=== PATIENT | female | born 1975 | race Caucasian/White ===

== ENCOUNTER 2019-06-10 17:04 | Emergency (ER) | payer OTHER ==
[2019-06-10 20:05] LABS: ADD MAN DIFF? NO
[2019-06-10 20:08] LABS: WHITE BLOOD COUNT 10.7 10^3/ul (4.8-10.8)
[2019-06-10 20:08] LABS: BASOPHILS % 0.4 % (0.0-2.0); EOSINOPHILS # 0.2 10^3/ul (0.0-0.5); EOSINOPHILS % 2.1 % (0.0-7.0); HEMATOCRIT 36.6 % (37.0-47.0); HEMOGLOBIN 12.2 g/dl (12.0-16.0); LYMPHOCYTES # 3.7 10^3/ul (0.8-2.9); LYMPHOCYTES % 34.9 % (15.0-51.0); MEAN CORPUSCULAR HEMOGLOBIN 30.8 pg (29.0-33.0); MEAN CORPUSCULAR HGB CONC 33.3 g/dl (32.0-37.0); MEAN CORPUSCULAR VOLUME 92.4 fl (82.0-101.0); MEAN PLATELET VOLUME 9.6 fl (7.4-10.4); MONOCYTE # 0.6 10^3/ul (0.3-0.9); MONOCYTES % 5.4 % (0.0-11.0); NEUTROPHIL # 6.1 10^3/ul (1.6-7.5); NEUTROPHILS % 56.8 % (39.0-77.0); PLATELET COUNT 266 10^3/UL (140-415); RED BLOOD COUNT 3.96 10^6/ul (4.20-5.40); RED CELL DISTRIBUTION WIDTH 14.9 % (11.5-14.5)
[2019-06-10 20:17] LABS: ADD UMIC YES; UR ASCORBIC ACID 20 mg/dL (NEGATIVE); UR BACTERIA FEW /HPF (NONE SEEN); UR BILIRUBIN (Dip) NEGATIVE (NEGATIVE); UR BLOOD (Dip) 1+ mg/dL (NEGATIVE); UR CLARITY CLEAR (CLEAR); UR COLOR YELLOW (YELLOW); UR GLUCOSE (Dip) NEGATIVE (NEGATIVE); UR KETONES (Dip) NEGATIVE (NEGATIVE); UR LEUKOCYTE ESTERASE (Dip) TRACE Leu/ul (NEGATIVE); UR NITRITE (Dip) NEGATIVE (NEGATIVE); UR RBC 0 /HPF (0-5); UR SPECIFIC GRAVITY (Dip) 1.011 (1.003-1.030); UR SQUAMOUS EPITHELIAL CELL FEW /HPF (FEW); UR TOTAL PROTEIN (Dip) NEGATIVE (NEGATIVE); UR UROBILINOGEN (Dip) NEGATIVE (NEGATIVE); UR WBC 1 /HPF (0-5)
[2019-06-10 20:28] LABS: ALANINE AMINOTRANSFERASE 22 IU/L (13-69); ALBUMIN 4.5 g/dl (3.3-4.9); ALBUMIN/GLOBULIN RATIO 0.95; ALKALINE PHOSPHATASE 86 IU/L (42-121); ANION GAP 9 (5-13); ASPARTATE AMINO TRANSFERASE 24 IU/L (15-46); BILIRUBIN,INDIRECT 0.4 mg/dl (0-1.1); BILIRUBIN,TOTAL 0.4 mg/dl (0.2-1.3); BLOOD UREA NITROGEN 9 mg/dl (7-20); CALCIUM 9.8 mg/dl (8.4-10.2); CARBON DIOXIDE 28 mmol/L (21-31); CHLORIDE 105 mmol/L (97-110); CREATININE 0.58 mg/dl (0.44-1.00); Estimated GFR > 60 mL/min (>60); GLUCOSE 87 mg/dl (70-220); INR 0.96; LIPASE 81 U/L (23-300); POTASSIUM 3.7 mmol/L (3.5-5.1); PROTIME 12.9 Sec (11.9-14.9); SODIUM 142 mmol/L (135-144); TOTAL PROTEIN 9.2 g/dl (6.1-8.1)
[2019-06-10] MEDS: ASPIRIN 325 MG TAB PO (20:33)
[2019-06-10 20:40] LABS: TROPONIN-I < 0.012 ng/ml (0.000-0.120)
[2019-06-10] MEDS: BELLADONNA/PHENOBARBITAL TAB PO (21:06)
[2019-06-10] MEDS: FAMOTIDINE 20 MG INJ IV (21:09)
[2019-06-10] MEDS: LIDOCAINE/MYLANTA 40 ML BTL PO (21:09)
[2019-06-10] MEDS: FAMOTIDINE 20 MG TAB PO (21:10)
[2019-06-10 23:38] LABS: TROPONIN-I 0.016 ng/ml (0.000-0.120)
== END 2019-06-11 01:54 | disposition home or self-care (01) ==
LOC: E/R 06-11 01:54 → FTE 17:04
DX: K20.9 Esophagitis, unspecified (principal); G89.29 Other chronic pain; F11.20 Opioid dependence, uncomplicated
CPT/HCPCS: 36415; 80053; 81001; 83690; 84484; 84703; 85025; 85610; 85730; 86850; 86900; 86901; 93005; 99284-25

== ENCOUNTER 2019-07-15 11:54 | Emergency (ER) | payer OTHER ==
[2019-07-15] MEDS: ONDANSETRON 4 MG INJ IV (14:56)
[2019-07-15] MEDS: SOD CHLORIDE 0.9% 1,000 ML IV (14:56)
[2019-07-15] MEDS: LIDOCAINE/MYLANTA 40 ML BTL PO (14:56)
[2019-07-15] MEDS: HYDROmorphONE 1 MG/ML SYG IV (14:56)
[2019-07-15] MEDS: FAMOTIDINE 20 MG INJ IV (14:56)
== END 2019-07-15 16:56 | disposition home or self-care (01) ==
LOC: FTE 11:54
DX: K29.70 Gastritis, unspecified, without bleeding (principal)
CPT/HCPCS: 36415; 71045; 80053; 81003; 81025; 83690; 84484; 85025; 93005; 96374; 96375; 99285-25